=== PATIENT | female | born 1940 | race Caucasian/White ===

== ENCOUNTER → 2017-09-04 08:11 | Outpatient (CLI) | payer MEDICARE, OTHER, SELFPAY ==
[2017-09-04 08:21] VITALS: BP 141/82; PULSE 64; RESP 18; TEMP 36.6; O2SAT 93; BMI 28.8
[2017-09-04] MEDS: Cosyntropin 0.25 MG Vial IM (08:28)
== END ==
PROVIDERS: Family Provider Internal Medicine; PCP Internal Medicine; Visit Provider Internal Medicine
DX: E27.40 Unspecified adrenocortical insufficiency (principal)
CPT/HCPCS: 36415; 82533; 96372; J0834

== ENCOUNTER → 2017-09-12 06:52 | Outpatient (CLI) | payer MEDICARE, OTHER, SELFPAY ==
--- NOTE | 2017-09-12 10:18 | STRESSREP ---
Stress Test Report Pharmacologic myocardial perfusion stress test. 76-year-old lady with a history of hypotension. Stress protocol: Resting EKG demonstrates normal sinus rhythm with rate of 67 bpm resting blood pressure of 144/88 mmHg. 0.4 mg of regadenoson was infused per usual protocol followed by rapid intravenous saline flush injection continuous EKG monitoring was performed the maximum heart rate attained was 80 bpm which was 55% of maximum predicted heart rate the maximum workload attained was 1 metabolic equivalent. At rest there were no ST or T-wave changes noted suggest ischemia at peak infusion no ST or T-wave changes were noted suggest ischemia or abnormal flow reserve. The resting blood pressure is 144/88 with a final blood pressure 154/80 mmHg. Myocardial perfusion protocol.: 12.0 mCi of technetium 99m sestamibi was injected at rest. 0.4 mg of regadenoson was infused per usual protocol. At peak infusion 35.9 mCi of technetium 99m sestamibi was injected stress images were obtained stress and rest images were reconstructed and compared in the short axis vertical long and horizontal long axis. Gated images were also obtained Perfusion SPECT analysis: Review of the images demonstrate normal uptake of tracer noted in all areas of the myocardium. The resting images similarly demonstrate normal uptake of tracer noted in all areas of myocardium. No areas of reversibility are noted suggest ischemia no previous infarct is noted. Gated SPECT analysis: The gated ejection fraction is 72%. Conclusion: Normal pharmacologic myocardial perfusion stress test. Preserved ejection fraction.
== END ==
PROVIDERS: Family Provider Internal Medicine; PCP Internal Medicine; Visit Provider Nurse Practitioner Gerontology
DX: R06.02 Shortness of breath (principal); I95.9 Hypotension, unspecified
CPT/HCPCS: 78452; 93017; A9500; A4216; J2785

== ENCOUNTER → 2018-07-03 10:50 | Outpatient (CLI) | payer MEDICARE, SELFPAY ==
[2017-09-04 08:21] VITALS: BMI 28.8
[2018-07-03 11:54] LABS: Absolute Lymphocyte Count 1.64 X10^3/ul (0.83-4.51); Absolute Neutrophil Count 9.6 X10^3/uL (2.0-7.7); Basophil# 0.05 X10^3/uL; Basophil% 0.4 % (0-1); Eosinophil# 0.81 X10^3/uL; Eosinophils% 6.3 % (0-5); Hematocrit 40.9 % (37-47); Hemoglobin 12.9 g/dl (12.0-15.0); Lymphocyte # 1.64 X10^3/ul (4.0); Lymphocyte % 12.7 % (19-41); Mean Corp Hgb Conc 31.5 g/gl (32-36); Mean Corpuscular Hgb 30.1 pg (27.0-32.0); Mean Corpuscular Volume 95.3 fL (81-99); Mean Platelet Vol. 9.6 fl (6.2-12.0); Monocyte# 0.77 X10^3/uL; Neutrophil # 9.59 X10^3/uL (2.7-7.7); Neutrophil % 74.4 % (47-70); Platelet Count 322 K/mm3 (150-450); RBC Distribution Width CV 12.4 % (11.6-14.6); RBC Distribution Width SD 42.3 fl (35.1-43.9); Red Blood Count 4.29 M/mm3 (4.2-5.4); White Blood Count 12.9 K/mm3 (4.4-11.0)
[2018-07-03 11:59] LABS: POSITIVE COUNT NO; POSITIVE DIFFERENTIAL NO; POSITIVE MORPHOLOGY NO
[2018-07-03 12:25] LABS: Vitamin D,25 Hydroxy 65.6 ng/mL (29.95-100.01)
[2018-07-03 12:27] LABS: ALB/GLOB Ratio 0.9 RATIO (0.9-2.4); AST(SGOT) 19 U/L (15-37); Alanine Aminotransfer ALT/SGPT 19 U/L (13-56); Albumin, Serum 3.5 g/dL (3.2-5.0); Alkaline Phosphatase 154 U/L (45-117); Anion Gap 5 (5-15); BUN 10 mg/dL (7-18); BUN/Creat Ratio 13.1 RATIO (10-20); Calcium,Total 8.8 mg/dL (8.5-10.1); Chloride 96 mmol/L (98-107); Cholesterol 146 mg/dL (200); Creatinine, Serum 0.76 mg/dL (0.55-1.02); EST Glomerular Filtration Rate 78 mL/min (>60); Est Glom Filt Rate - Afr Amer 94 mL/min (>60); Globulin 4.1 g/dL (2.2-4.2); Glucose 107 mg/dL (74-106); High Density Lipoprotein 41 mg/dL; Potassium 4.4 mmol/L (3.5-5.1); Protein, Total 7.6 g/dL (6.4-8.2); Sodium Level 133 mmol/L (136-145); T4 Free Direct 1.13 ng/dL (0.76-1.46); Thyroid Stim Hormone (TSH) 0.74 uIU/mL (0.358-3.74); Triglycerides 104 mg/dL; Very Low Density Lipoprotein 21 mg/dL (5-40)
== END ==
PROVIDERS: Family Provider Internal Medicine; PCP Internal Medicine; Referring Provider Internal Medicine; Visit Provider Internal Medicine
DX: E55.9 Vitamin D deficiency, unspecified (principal); E03.9 Hypothyroidism, unspecified; I21.9 Acute myocardial infarction, unspecified
CPT/HCPCS: 36415; 80053; 80061; 82306; 84439; 84443; 84481; 85025

== ENCOUNTER 2018-10-02 13:13 | Emergency (ER) | payer OTHER, MEDICARE, SELFPAY ==
[2018-10-02 13:14] VITALS: BP 133/78; PULSE 64; RESP 18; TEMP 37.1; O2SAT 93; BMI 30.8
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
[2018-10-02] MEDS: HYDROcodone Bitartrate/Apap 5/325 Tablet PO (13:56)
[2018-10-02 14:15] LABS: Absolute Lymphocyte Count 2.14 X10^3/ul (0.83-4.51); Absolute Neutrophil Count 4.4 X10^3/uL (2.0-7.7); Basophil# 0.02 X10^3/uL; Basophil% 0.3 % (0-1); Eosinophil# 0.18 X10^3/uL; Eosinophils% 2.5 % (0-5); Hematocrit 38.5 % (37-47); Hemoglobin 12.9 g/dl (12.0-15.0); Lymphocyte # 2.14 X10^3/ul (4.0); Lymphocyte % 30.3 % (19-41); Mean Corp Hgb Conc 33.5 g/gl (32-36); Mean Corpuscular Hgb 30.2 pg (27.0-32.0); Mean Corpuscular Volume 90.2 fL (81-99); Mean Platelet Vol. 9.5 fl (6.2-12.0); Monocyte# 0.34 X10^3/uL; Monocyte% 4.8 % (0-10); Neutrophil # 4.37 X10^3/uL (2.7-7.7); Platelet Count 289 K/mm3 (150-450); RBC Distribution Width CV 12.8 % (11.6-14.6); RBC Distribution Width SD 41.7 fl (35.1-43.9); Red Blood Count 4.27 M/mm3 (4.2-5.4); White Blood Count 7.1 K/mm3 (4.4-11.0)
[2018-10-02 14:18] LABS: International Normalized Ratio 1.1; POSITIVE COUNT NO; POSITIVE DIFFERENTIAL NO; POSITIVE MORPHOLOGY NO; Partial Thromboplast Time 44.5 Seconds (24.1-36.2); Prothrombin Time (Protime)PT. 14.1 SECONDS (11.7-14.9)
[2018-10-02 14:21] LABS: Anion Gap 3 (5-15); BUN 9 mg/dL (7-18); BUN/Creat Ratio 12.9 RATIO (10-20); Calcium,Total 9.1 mg/dL (8.5-10.1); Chloride 97 mmol/L (98-107); EST Glomerular Filtration Rate 87 mL/min (>60); Est Glom Filt Rate - Afr Amer 105 mL/min (>60); Estimated Creatinine Clearance 38.35 ml/min; Glucose 119 mg/dL (74-106); Potassium 3.5 mmol/L (3.5-5.1); Sodium Level 131 mmol/L (136-145)
[2018-10-02 15:20] VITALS: BP 127/48; PULSE 62; RESP 15; O2SAT 97
[2018-10-02 16:52] VITALS: BP 150/71; PULSE 61; RESP 18; O2SAT 96
== END 2018-10-02 16:56 | disposition home or self-care (01) ==
LOC: ED 14:23
PROVIDERS: Emergency Provider Emergency Medicine; Family Provider Internal Medicine; PCP Internal Medicine
DX: S16.1XXA Strain of muscle, fascia and tendon at neck level, initial encounter (principal); S20.219A Contusion of unspecified front wall of thorax, initial encounter; R40.2410 Glasgow coma scale score 13-15, unspecified time; V89.2XXA Person injured in unspecified motor-vehicle accident, traffic, initial encounter; Y93.9 Activity, unspecified; Y92.9 Unspecified place or not applicable; M54.9 Dorsalgia, unspecified; M54.2 Cervicalgia; G89.29 Other chronic pain; F41.9 Anxiety disorder, unspecified; Z79.899 Other long term (current) drug therapy
CPT/HCPCS: 70450; 71250; 72125; 80048; 85025; 85610; 85730; 93005; 99285; A4216

== ENCOUNTER 2018-11-26 14:00 | Outpatient (RCR) | payer OTHER, MEDICARE, SELFPAY ==
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
--- NOTE | 2018-11-26 14:23 | HP.PTDCSUM_ITS ---
HP - PT D/C Summary It has been my pleasure to treat KURTIS HOROWITZ under orders from Mary Maria DO, for the diagnosis of SOFT TISSUE INJURY for a total of 10 visit(s). Discharge Date: 11/26/18 Please see the following information for a summary of their discharge status. - Subjective Subjective: Doing well ..min pain Able to do ADL'S. - Pain Bilateral Back Pain Intensity (Out of 10): 4 Neck Pain Intensity (Out of 10): 2 Chest Pain Intensity (Out of 10): 3 - Overall Improvement % Improvement: 85 - Objective Objective/Function: POSTURE: mild foward posture. GAIT: reciprocal pattern. NEURO: denies parathesia/tingling,reflexes intact. CERVICAL ROM: flexion min loss,lateral flexion/rotation mod loss ,extenison mod loss. BUE: grossly 4/5 4- /5 shoulder. MMT: quads/hams 4/5,hip 4/5 ankle 4/5. LUMBAR ROM : flexion mod loss ,extension mod/extension mod loss - Goals Goal 1:: Independant with Aquatic PT Goal Progress: Goal Met Goal 2:: Patient to decrease pain by 50% or greater to improve function and AD L's Goal Progress: Goal Met Goal 3:: Patient to increase strength 4/5 to improve function Goal 4:: Patient to improve spine for function of recovery Goal Progress: Goal Met Goal 5:: Patient be able to return to ADLS' and housework tasks with minm limiations Goal Progress: Goal Met Goal 6:: Patient to improve back owestry score by 5 points or greater to improve QOL. Goal Progress: Goal Met - Plan Plan: D/C - D/C Information Discharge Comments: met goals If there are questions or concerns regarding this patient's physical therapy, please feel free to call me at [phone]. Thank you for the referral of this patient. Sincerely, Dav Brooks, PT, Cert MDT, OCS
== END 2018-11-26 19:00 | disposition home or self-care (01) ==
LOC: PT 14:00
PROVIDERS: Family Provider Internal Medicine; PCP Internal Medicine; Visit Provider Internal Medicine
DX: T14.90XD Injury, unspecified, subsequent encounter (principal)
CPT/HCPCS: 97113; 97162; 97530

== ENCOUNTER → 2019-01-13 11:34 | Outpatient (CLI) | payer MEDICARE, OTHER, SELFPAY ==
[2019-01-13 11:52] LABS: Bacteria 0 SEEN /hpf (None Seen); Mucous, Urine 0 SEEN /hpf (<or=2+); White Blood Cells 0 SEEN /hpf (0-5)
[2019-01-13 12:38] LABS: Color, Urine Yellow (Yellow); Glucose, Dipstick Normal (Normal); Ketone-Dipstick Negative (Negative); Leukocyte Esterase-Dipstick 25 /ul (Negative); Nitrite-Dipstick Negative (Negative); Occult Blood-Urine 10 /ul (Negative); Protein-Dipstick 15 mg/dl (Negative); Urine Bilirubin Dipstick Negative (Negative); Urine Clarity Sl. Cloudy (Clear); Urine Urobilinogen 1 mg/dl (Normal)
[2019-01-13 12:39] LABS: Absolute Lymphocyte Count 1.85 X10^3/uL (0.83-4.51); Absolute Neutrophil Count 3.7 X10^3/uL (2.0-7.7); Basophil# 0.06 X10^3/uL; Basophil% 0.9 % (0-1); Eosinophil# 0.22 X10^3/uL; Eosinophils% 3.5 % (0-5); Hematocrit 42.2 % (37-47); Lymphocyte # 1.85 X10^3/ul (4.0); Lymphocyte % 29.2 % (19-41); Mean Corp Hgb Conc 33.2 g/dL (32-36); Mean Corpuscular Hgb 29.9 pg (27.0-32.0); Mean Platelet Vol. 9.5 fl (6.2-12.0); Monocyte# 0.49 X10^3/uL; Monocyte% 7.7 % (0-10); NRBC Flagged by Analyzer 0 % (0-5); Neutrophil # 3.69 X10^3/uL (2.7-7.7); Neutrophil % 58.4 % (47-70); Platelet Count 320 K/mm3 (150-450); RBC Distribution Width CV 12.4 % (11.6-14.6); RBC Distribution Width SD 40.5 fl (35.1-43.9); Red Blood Count 4.69 M/mm3 (4.2-5.4); White Blood Count 6.3 K/mm3 (4.4-11.0)
[2019-01-13 13:03] LABS: Red Blood Cells-Urine 0-5 SEEN /hpf (0-5); Squamous Epithelial Cells - UA 0-5 SEEN /hpf (5-10)
[2019-01-13 13:11] LABS: Vitamin D,25 Hydroxy 78.8 ng/mL (29.95-100.01)
[2019-01-13 13:17] LABS: Microalbumin,Random Urine 31.6 mg/L (NO RANGE EST.); Microalbumin:Creatinine Ratio 27.5 mg/g CRE (<30 mg/g CRE)
[2019-01-13 13:26] LABS: ALB/GLOB Ratio 0.9 RATIO (0.9-2.4); AST(SGOT) 19 U/L (15-37); Alanine Aminotransfer ALT/SGPT 17 U/L (13-56); Albumin, Serum 3.8 g/dL (3.2-5.0); Alkaline Phosphatase 127 U/L (45-117); Anion Gap 8 (5-15); BUN 7 mg/dL (7-18); BUN/Creat Ratio 9.6 RATIO (10-20); Calcium,Total 9.4 mg/dL (8.5-10.1); Chloride 87 mmol/L (98-107); Creatinine, Serum 0.73 mg/dL (0.55-1.02); EST Glomerular Filtration Rate 81 mL/min (>60); Est Glom Filt Rate - Afr Amer 99 mL/min (>60); Free T3 2.1 pg/mL (2.18-3.98); Globulin 4.4 g/dL (2.2-4.2); Glucose 122 mg/dL (74-106); Potassium 3.2 mmol/L (3.5-5.1); Protein, Total 8.2 g/dL (6.4-8.2); Sodium Level 126 mmol/L (136-145); T4 Free Direct 1.27 ng/dL (0.76-1.46); Thyroid Stim Hormone (TSH) 0.44 uIU/mL (0.358-3.74)
[2019-01-14 20:07] LABS: CHOLESTEROL TOTAL 180 mg/dL (100-199); HDL-C 46 mg/dL (>39); HDL-P TOTAL 34.7 umol/L (>=30.5); SMALL LDL-P 945 nmol/L (<=527); TRIGLYCERIDES 121 mg/dL (0-149)
[2019-01-15 16:30] LABS: INSULIN RESISTANCE SCORE 63 (<=45); LDL SIZE 20.5 nm (>20.5); LDL-C 110 mg/dL (0-99); LDL-P 1579 nmol/L (<1000)
== END ==
PROVIDERS: Family Provider Internal Medicine; PCP Internal Medicine; Referring Provider Internal Medicine; Visit Provider Internal Medicine
DX: E55.9 Vitamin D deficiency, unspecified (principal); E03.9 Hypothyroidism, unspecified; E78.00 Pure hypercholesterolemia, unspecified; I12.9 Hypertensive chronic kidney disease with stage 1 through stage 4 chronic kidney disease, or unspecified chronic kidney disease; N18.9 Chronic kidney disease, unspecified
CPT/HCPCS: 36415; 80053; 80061; 81001; 82043; 82306; 82570; 83704; 84439; 84443; 84481; 85025

== ENCOUNTER → 2020-06-29 12:59 | Outpatient (CLI) | payer MEDICARE, OTHER, SELFPAY ==
--- NOTE | 2020-06-29 13:20 | BD_ITS ---
STUDY: DUAL ENERGY X-RAY ABSORPTIOMETRY / DXA REASON FOR EXAM: Female, 79 years old. [id number]. Loss of height. Postmenopausal TECHNIQUE: Bone Mineral Density (BMD) measurements of lumbar spine and bilateral hips were obtained. COMPARISON: None. FINDINGS: Lumbar Spine (L1-L4): g/cm2 (0.997) / T-score (-1.4) / Z-score (0.4) Findings are suggestive of osteopenia with a low fracture risk. Left Femur Total: g/cm2 (0.967) / T-score (-0.3) / Z-score (1.7) Left Femoral Neck: g/cm2 (0.841) / T-score (-1.4) / Z-score (0.8) Right Femur Total: g/cm2 (1.047) / T-score (0.3) / Z-score (2.3) Right Femoral Neck: g/cm2 (0.821) / T-score (-1.6) / Z-score (0.6) BD/Dexa Bone Density Study IMPRESSION: The patient is considered osteopenic as outlined below according to World [employer] Organization (WHO) criteria with a moderate fracture risk. Reference Information: The T-score is the number of standard deviations above or below the standard which is normal for young adults at their peak bone mineral density. The World Health Organization (WHO) interprets the T-scores as follows: Above -1 Normal bone density Between -1 and -2.5 Osteopenia Equal to / or below -2.5 Osteoporosis As a practical clinical guideline, osteopenia may be graded as follows: Mild -1 through -1.5 Moderate -1.6 through -2.0 Severe -2.1 through -2.4 The Z-score is the number of standard deviations above or below age-matched controls. A Z-score of less than -1.5 would be considered abnormal. References: 1. NIH Osteoporosis and Related Bone Diseases www osteo.org 2. International Society for Clinical Densitometry www iscd.org 3. National Osteoporosis Foundation www nof.org Electronically Signed: Nelson Jenkins MD at 15:13 EST , Service support ,
== END ==
PROVIDERS: PCP Internal Medicine; Referring Provider Internal Medicine; Visit Provider Internal Medicine
DX: Z78.0 Asymptomatic menopausal state (principal)
CPT/HCPCS: 77080

== ENCOUNTER → 2021-01-16 08:07 | Outpatient (CLI) | payer MEDICARE, OTHER, SELFPAY ==
[2021-01-16 09:55] LABS: Absolute Lymphocyte Count 3.07 X10^3/uL (0.83-4.51); Absolute Neutrophil Count 2.8 X10^3/uL (2.0-7.7); Basophil# 0.07 X10^3/uL; Eosinophil# 0.26 X10^3/uL; Eosinophils% 3.9 % (0-5); Hemoglobin 13.3 g/dL (12.0-15.0); Lymphocyte # 3.07 X10^3/ul (0.83-4.51); Lymphocyte % 45.5 % (19-41); Mean Corp Hgb Conc 31.7 g/dL (32-36); Mean Corpuscular Hgb 30.4 pg (27.0-32.0); Mean Corpuscular Volume 96.1 fL (81-99); Monocyte% 7.4 % (0-10); NRBC Flagged by Analyzer 0 % (0-5); Neutrophil # 2.82 X10^3/uL (2.7-7.7); Neutrophil % 41.9 % (47-70); Platelet Count 278 K/mm3 (150-450); RBC Distribution Width CV 12.6 % (11.6-14.6); RBC Distribution Width SD 44.7 fl (35.1-43.9); Red Blood Count 4.37 M/mm3 (4.2-5.4); White Blood Count 6.7 K/mm3 (4.4-11.0)
[2021-01-16 10:12] LABS: Vitamin D,25 Hydroxy 104.5 ng/mL
[2021-01-16 10:23] LABS: ALB/GLOB Ratio 0.8 RATIO (0.9-2.4); AST(SGOT) 26 U/L (15-37); Alanine Aminotransfer ALT/SGPT 23 U/L (13-56); Albumin, Serum 3.4 g/dL (3.2-5.0); Alkaline Phosphatase 137 U/L (45-117); Anion Gap 4 (5-15); BUN 13 mg/dL (7-18); BUN/Creat Ratio 17.8 RATIO (10-20); Chloride 95 mmol/L (98-107); Cholesterol 161 mg/dL (200); Creatinine, Serum 0.73 mg/dL (0.55-1.02); EST Glomerular Filtration Rate 81 mL/min (>60); Est Glom Filt Rate - Afr Amer 98 mL/min (>60); Globulin 4.4 g/dL (2.2-4.2); Glucose 120 mg/dL (74-106); High Density Lipoprotein 51 mg/dL; Potassium 3.9 mmol/L (3.5-5.1); Protein, Total 7.8 g/dL (6.4-8.2); Sodium Level 132 mmol/L (136-145); Thyroid Stim Hormone (TSH) 2.03 uIU/mL (0.358-3.74); Triglycerides 110 mg/dL; Uric Acid 4.9 mg/dL (2.6-6.0); Very Low Density Lipoprotein 22 mg/dL (5-40)
== END ==
PROVIDERS: PCP Internal Medicine; Referring Provider Internal Medicine; Visit Provider Internal Medicine
DX: E03.9 Hypothyroidism, unspecified (principal); E78.00 Pure hypercholesterolemia, unspecified; M10.9 Gout, unspecified; E55.9 Vitamin D deficiency, unspecified
CPT/HCPCS: 36415; 80053; 80061; 82306; 84443; 84550; 85025

== ENCOUNTER 2021-07-18 10:11 | Outpatient (CLI) | payer MEDICARE, OTHER, SELFPAY ==
[2021-07-18 12:21] LABS: Absolute Lymphocyte Count 1.83 X10^3/uL (0.83-4.51); Absolute Neutrophil Count 2.6 X10^3/uL (2.0-7.7); Basophil# 0.07 X10^3/uL; Basophil% 1.4 % (0-1); Eosinophil# 0.28 X10^3/uL; Eosinophils% 5.5 % (0-5); Hematocrit 41.4 % (37-47); Hemoglobin 13.8 g/dL (12.0-15.0); Lymphocyte # 1.83 X10^3/ul (0.83-4.51); Lymphocyte % 35.7 % (19-41); Mean Corp Hgb Conc 33.3 g/dL (32-36); Mean Corpuscular Hgb 30.7 pg (27.0-32.0); Mean Corpuscular Volume 92.2 fL (81-99); Mean Platelet Vol. 10.2 fl (6.2-12.0); Monocyte# 0.37 X10^3/uL; Monocyte% 7.2 % (0-10); NRBC Flagged by Analyzer 0 % (0-5); Neutrophil # 2.57 X10^3/uL (2.7-7.7); Platelet Count 251 K/mm3 (150-450); RBC Distribution Width CV 12.2 % (11.6-14.6); RBC Distribution Width SD 41.4 fl (35.1-43.9); Red Blood Count 4.49 M/mm3 (4.2-5.4); White Blood Count 5.1 K/mm3 (4.4-11.0)
[2021-07-18 12:33] LABS: ALB/GLOB Ratio 0.9 RATIO (0.9-2.4); AST(SGOT) 23 U/L (15-37); Alanine Aminotransfer ALT/SGPT 26 U/L (13-56); Albumin, Serum 3.6 g/dL (3.2-5.0); Alkaline Phosphatase 130 U/L (45-117); Anion Gap 3 (5-15); BUN 11 mg/dL (7-18); BUN/Creat Ratio 15.3 RATIO (10-20); Calcium,Total 9.3 mg/dL (8.5-10.1); Chloride 95 mmol/L (98-107); Cholesterol 161 mg/dL (200); Creatinine, Serum 0.72 mg/dL (0.55-1.02); EST Glomerular Filtration Rate 83 mL/min (>60); Est Glom Filt Rate - Afr Amer 100 mL/min (>60); Glucose 130 mg/dL (74-106); High Density Lipoprotein 53 mg/dL; Potassium 3.7 mmol/L (3.5-5.1); Protein, Total 7.6 g/dL (6.4-8.2); Sodium Level 134 mmol/L (136-145); Triglycerides 107 mg/dL; Very Low Density Lipoprotein 21 mg/dL (5-40); Vitamin D,25 Hydroxy 35.4 ng/mL
[2021-07-18 12:47] LABS: Microalbumin,Random Urine 15.7 mg/L (NO RANGE EST.); Microalbumin:Creatinine Ratio 30.9 mg/g CRE (<30 mg/g CRE)
[2021-07-18 12:53] LABS: Hemoglobin A1c 6.3 % (3.8-5.6)
== END 2021-07-18 23:59 | disposition home or self-care (01) ==
LOC: MTLAB 10:12
PROVIDERS: PCP Internal Medicine; Referring Provider Internal Medicine; Visit Provider Internal Medicine
DX: E11.22 Type 2 diabetes mellitus with diabetic chronic kidney disease (principal); E78.00 Pure hypercholesterolemia, unspecified; E55.9 Vitamin D deficiency, unspecified; I12.9 Hypertensive chronic kidney disease with stage 1 through stage 4 chronic kidney disease, or unspecified chronic kidney disease; N18.9 Chronic kidney disease, unspecified
CPT/HCPCS: 36415; 80053; 80061; 82043; 82306; 82570; 83036; 85025

== ENCOUNTER → 2022-01-11 | Outpatient (CLI) | payer MEDICARE, OTHER, SELFPAY ==
--- NOTE | 2022-01-11 08:31 | RAD_ITS ---
STUDY: X-RAY - ESOPHAGUS (BARIUM SWALLOW) WITH FLUOROSCOPY REASON FOR EXAM: Female, 81 years old. DYSPHAGIA TECHNIQUE: 17 view(s) of the esophagus were obtained following swallowing of barium. FLUOROSCOPY TIME (if supplied): (37 seconds) minutes/seconds COMPARISON: None. FINDINGS: There is no demonstrated esophageal foreign body. There is circumferential narrowing of the distal esophagus at the gastroesophageal junction. The patient ingested a 12 mm tablet of barium. The tablet is trapped at the gastroesophageal junction. Normal gastroesophageal junction, without a demonstrated hiatal hernia. There is atherosclerotic calcification of the aortic arch with tortuosity of the descending aorta. Normal visualized pulmonary parenchyma. There are diffuse degenerative changes of the visualized thoracic spine. RAD/Esophagus Dual Contrast IMPRESSION: Circumferential narrowing of the distal portion of the esophagus at the level of the gastroesophageal junction. The ingested 12 mm tablet of barium is trapped at the gastroesophageal junction. Electronically Signed: Nelson Jenkins MD at 10:26 EDT ,
== END | disposition home or self-care (01) ==
LOC: RAD 08:17
PROVIDERS: PCP Internal Medicine; Referring Provider Otolaryngology; Visit Provider Otolaryngology
DX: R13.10 Dysphagia, unspecified (principal); K21.9 Gastro-esophageal reflux disease without esophagitis
CPT/HCPCS: 74220; 74221

== ENCOUNTER 2022-09-21 19:23 | Emergency (ER) | payer MEDICARE, OTHER, SELFPAY ==
[2022-09-21 19:24] VITALS: BP 139/70; PULSE 75; RESP 16; TEMP 36.8; O2SAT 93
[2022-09-21 19:29] VITALS: O2SAT 94
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
--- NOTE | 2022-09-21 19:44 | ED.VIS.FALL ---
HPI HPI - Fall History of Present Illness Chief Complaint: Fall Informant: patient Occured/Mechanism Occurred: Today Mechanism/Context: Yes same level fall and Yes trip Usually ambulates: Without assistance Pain/Injury Location: Occipital scalp Pain Location: head Quality of Pain: Dull Current Severity: Mild Worsened by: Nothing Relieved by: Nothing Associated Symptoms Associated Symptoms: Positive for Loss of consciousness; Negative for Parasthesias, Weakness, Loss of function or Inability to ambulate Length of loss of consciousness: Approximately 30 seconds Narrative Narrative: Patient presents with scalp laceration and head injury that began today. Patient was helping her daughter carry a large box when her foot got caught in the pavement and she fell backwards. Patient hit her head on the truck tire. Daughter stated that the patient was dazed and had a brief loss of consciousness for approximately 30 seconds. Patient still has difficulty remembering events of the fall. Patient denies any paresthesias or weakness. Patient denies any nausea or vomiting. Patient has a history of chronic neck and back pain but states she has no worsening of her neck and back pain. Patient is unsure of her last tetanus. Tetanus Immunization: Unknown [facility] Medical History (Updated 09/21/22 @ 20:[address] Delvis Elliott, DO) Arthritis Chronic neck and back pain Hypertension Hypoglycemia Thyroid disease Home Medications alprazolam 1 mg tablet (Xanax) 0.5 mg PO BID PRN PRN Anxiety 08/02/16 [History Last Taken 10/02/18] amitriptyline 50 mg tablet 50 mg PO QHS 08/02/16 [History Last Taken Unknown] atorvastatin 80 mg tablet (Lipitor) 80 mg PO DAILY 08/02/16 [History Last Taken 10/02/18] duloxetine 60 mg capsule,delayed release 90 mg PO DAILY 08/02/16 [History Last Taken 10/02/18] levothyroxine 88 mcg tablet (Levo-T) 88 mcg PO MOTUWETHFRSA 08/02/16 [History Last Taken 10/02/18] metoprolol tartrate 50 mg-hydrochlorothiazide 25 mg tablet (Lopressor HCT) 0.5 tab PO DAILY 08/02/16 [History Last Taken 10/02/18] montelukast 10 mg tablet 10 mg PO DAILY 08/02/16 [History Last Taken 10/02/18] bupropion HCl 150 mg tablet,12 hr sustained-release (Wellbutrin SR) 150 mg PO DAILY 08/08/16 [History Last Taken 10/02/18] gabapentin 300 mg tablet,extended release 24 hr (Gralise) 300 mg PO QHS 08/08/16 [History Last Taken 10/02/18] tizanidine 4 mg tablet (Zanaflex) 2 mg PO TID 08/08/16 [History Last Taken 10/02/18] Ibandronate Sodium [Boniva] 150 mg PO Q30D 01/22/17 [History Last Taken Unknown] amlodipine 2.5 mg tablet 2.5 mg PO QHS 01/22/17 [History Last Taken Unknown] buspirone 15 mg tablet 15 mg PO QHS 01/22/17 [History Last Taken 10/01/18] citalopram 40 mg tablet 40 mg PO DAILY 01/22/17 [History Last Taken 10/02/18] ergocalciferol (vitamin D2) 1,250 mcg (50,000 unit) capsule (Vitamin D2) 50,000 unit PO Q7D 01/22/17 [History Last Taken Unknown] levothyroxine 75 mcg tablet 44 mcg PO SILVA 01/22/17 [History Last Taken 09/27/18] lisinopril 20 mg tablet 20 mg PO BID 01/22/17 [History Last Taken 10/02/18] methocarbamol 500 mg tablet 500 mg PO TID 01/22/17 [History Last Taken 10/02/18] potassium chloride 20 mEq tablet,extended release(part/cryst) (Klor-Con M) 20 meq PO BID 01/22/17 [History Last Taken 10/02/18] hydrocodone-acetaminophen 5-325mg 5mg-325mg ([place]) 5 - 325 mg PO BID PRN PRN Pain 03/10/17 [History Last Taken 10/02/18] nitrofurantoin monohydrate/macrocrystals 100 mg capsule (Macrobid) 100 mg PO Q12H #20 caps 10/05/20 [Rx Last Taken Unknown] Allergy/AdvReac Type Severity Reaction Status Date / Time Penicillins [PCN] Allergy Severe Anaphylaxis Verified 10/05/20 15:20 Sulfa (Sulfonamide Allergy Rash Verified 10/05/20 15:20 Antibiotics) sulfamethoxazole Allergy Rash Verified 10/05/20 15:20 [From Bactrim] trimethoprim [From Bactrim] Allergy Rash Verified 10/05/20 15:20 clarithromycin AdvReac Severe HALLUCINATI Verified 10/05/20 15:20 ONS pneumococcal vaccine AdvReac Severe Unknown Verified 10/05/20 15:20 [From Pneumovax 23] ALL EYE DROPS Allergy Severe Itching Uncoded 10/05/20 15:20 blood thinners Allergy Unknown Uncoded 10/05/20 15:20 Surgical History (Updated 09/21/22 @ 19:[address] Delvis Elliott DO) Hx of angioplasty Hx of hysterectomy S/P ORIF (open reduction internal fixation) fracture Social History Smoking Status: Former smoker ROS ROS ED Constitutional Constitutional ED: Denies chills or fever(s) Eyes Eyes: Denies blurry vision or change in vision ENT ENT ED: Denies rhinorrhea or sore throat Cardiovascular Cardiovascular: Denies chest pain or palpitations Respiratory/Chest Respiratory/Chest: Denies cough or dyspnea Gastrointestinal Gastrointestinal: Denies nausea or vomiting Genitourinary Genitourinary ED: Denies dysuria or hematuria Musculoskeletal Musculoskeletal: Reports back pain and neck pain Integumentary Denies abscess or rash Neurologic Neurologic: Reports headache(s); Denies weakness Allergic/Immunologic Allergic/Immunologic ED: Denies mouth swelling or urticaria EXAM Physical Exam Const Vital Signs: 09/21/22 19:24 09/21/22 19:29 09/21/22 21:01 Temperature 98.2 F Temperature Source Oral Pulse Rate 75 71 Respiratory Rate 16 16 Respiratory Effort Normal Non-Labored Respiratory Depth Normal Respiratory Pattern Normal Blood Pressure 139/70 H 158/82 H Blood Pressure Mean 93 107 Pulse Ox 93 94 95 Oxygen Delivery Method Room Air Room Air Room Air Positive well nourished and well developed General Appearance ED: well developed and NAD HEENT HEENT Narrative: There is a 3 cm full-thickness linear laceration over the occipital scalp. There is mild bleeding. There are no foreign bodies noted. There is moderate gapping of the wound margins. There is no bony crepitance or step-off. Neck full ROM and supple Neuro oriented x3, CN's II-XII intact bilaterally, moves all extremities, no focal motor deficits and no sensory deficits noted Rafita Coma Scale: document GCS findings Spontaneous Obeys Commands Oriented 15 Sensorium / Orientation: alert Motor Exam: strength 5/5 throughout Psych mental status grossly normal and thought process normal Skin Trauma: laceration linear and involves subcutaneous tissue MDM MDM MDM Narrative Medical decision making narrative: Differential diagnosis includes concussion, closed head injury, intracranial bleeding, and scalp laceration. CT scan of the brain will be obtained to assess for intracranial bleeding. Radiography Diagnostic Testing: Clinical Impression(s) from Imaging Studies Brain CT 09/21/22 19:37 IMPRESSION: No acute intracranial hemorrhage or bony fracture. 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 Similar exam findings compared to prior study 2018. Electronically Signed: Bishop العراقي MD at 20:12 EDT , Hip/Pelvis X-Ray 09/21/22 20:35 IMPRESSION: No displaced hip fracture is appreciated. Tiny corticated density projecting inferior to the femoral head of unclear significance and chronicity. Consider additional imaging as clinically warranted. Electronically Signed: Bishop العراقي MD at 21:02 EDT , CT scan of the brain was obtained. There is no acute intracranial abnormality. There are chronic changes noted. This was interpreted by the radiologist and was also independently reviewed by myself. X-rays of the left hip were obtained. There are 3 views. On my independent interpretation, there is no acute fracture or dislocation. There is no pelvic fracture noted. Radiologist also interpreted the x-rays and agrees. Treatment and Re-Evaluation Narrative: Patient was given a tetanus booster. The wound was cleaned and irrigated with copious amounts of normal saline. The wound was anesthetized with 1% lidocaine with epinephrine locally. The wound was closed with 8 leyda under sterile technique. Patient tolerated the procedure well. Bacitracin dressing was applied. On reevaluation, the patient began complaining of pain in the posterior aspect of her left hip. Because of this, left hip x-rays will be obtained. X-rays of the left hip did not show any acute fracture. Patient was advised of her findings. Patient began complaining of dizziness after x-rays. Patient was able to ambulate to the bathroom and back with her walker. Patient will be discharged home with a walker. Patient was instructed to follow-up with her primary care physician in 5 to 7 days. Patient was given head injury instructions. Patient was instructed to take Tylenol or ibuprofen as needed for pain. Patient and daughter understood and were agreeable with the plan. All questions were answered. Discharge Plan Triage Chief Complaint: Fall ED Provider: Delvis Elliott Dx/Rx/DC Orders Clinical Impression: Laceration of occipital scalp, Concussion, Contusion of left hip region Instructions: ED Concussion, ED Laceration Scalp Stitches or Leyda Prescriptions: No Action nitrofurantoin monohyd/m-cryst [Macrobid] 100 mg capsule 100 mg PO Q12H Qty: 20 0RF Rx Instructions: must administer with a meal/food atorvastatin [Lipitor] 80 MG tablet 80 mg PO DAILY alprazolam [Xanax] 1 MG tablet 0.5 mg PO BID PRN PRN (Reason: Anxiety) metoprolol ta-hydrochlorothiaz [Lopressor HCT] 1 EACH tablet 0.5 tab PO DAILY amitriptyline 50 MG tablet 50 mg PO QHS levothyroxine [Levo-T] 88 MCG tablet 88 mcg PO MOTUWETHFRSA montelukast 10 MG tablet 10 mg PO DAILY duloxetine 60 MG capsule 90 mg PO DAILY bupropion HCl [Wellbutrin SR] 150 MG tablet sustained-release 12 hr 150 mg PO DAILY tizanidine [Zanaflex] 4 MG tablet 2 mg PO TID gabapentin [Gralise] 300 MG tablet extended release 24 hr 300 mg PO QHS methocarbamol 500 MG tablet 500 mg PO TID citalopram 40 MG tablet 40 mg PO DAILY lisinopril 20 MG tablet 20 mg PO BID amlodipine 2.5 MG tablet 2.5 mg PO QHS levothyroxine 75 MCG tablet 44 mcg PO SILVA potassium chloride [Klor-Con M20] 20 MEQ tablet,ER particles/crystals 20 meq PO BID ergocalciferol (vitamin D2) [Vitamin D2] 50,000 UNIT capsule 50,000 unit PO Q7D Label Comments: every other week buspirone 15 MG tablet 15 mg PO QHS Ibandronate Sodium [Boniva] 150 MG tablet 150 mg PO Q30D hydrocodone-acetaminophen [[place]] 1 EACH tablet 5 - 325 mg PO BID PRN PRN (Reason: Pain) Primary Care Provider: Mary Maria Referrals: Mary Maria DO [Primary Care Provider] - 5 Days for suture removal Disposition Disposition: Home, Self Care
[2022-09-21] MEDS: Diphth,Pertuss(Acell),Tet Vac 0.5 ML Vial IM (20:01)
[2022-09-21] MEDS: Lidocaine/Epi/Tetracaine 50 ML 1 APPLIC TOPICAL (20:01)
[2022-09-21] MEDS: Lidocaine 1% /Epi 1:100 (20ml) 20 ML Vial INFILT (20:01)
--- NOTE | 2022-09-21 20:35 | RAD_ITS ---
INDICATION: Injury/Pain EXAMINATION/TECHNIQUE: X-RAY - LEFT XR Hip Unilateral with Pelvis when performed; 2-3 Views 3 VIEWS COMPARISON: None. FINDINGS: Moderate bilateral hip joint space narrowing is appreciated. The patient has a tiny density projecting just inferior to the femoral head along the ischium at the inferior aspect of the acetabulum. There is mild to moderate SI joint degenerative change. This patient has lower lumbar spine intervertebral disc narrowing and spondylotic change. Moderate degenerative changes are present at the pubic symphysis. No obvious pelvic ring fracture. Hernia repair with mesh material projecting over the pelvis. RAD/HIP, UNI W/ Pelvis 2-3 Views IMPRESSION: No displaced hip fracture is appreciated. Tiny corticated density projecting inferior to the femoral head of unclear significance and chronicity. Consider additional imaging as clinically warranted. Electronically Signed: Bishop العراقي MD at 21:02 EDT ,
[2022-09-21 21:01] VITALS: BP 158/82; PULSE 71; RESP 16; O2SAT 95
== END 2022-09-21 21:37 | disposition home or self-care (01) ==
LOC: ED 20:38
PROVIDERS: Emergency Provider Emergency Medicine; PCP Internal Medicine; Referring Provider Emergency Medicine; Visit Provider Emergency Medicine
DX: S01.01XA Laceration without foreign body of scalp, initial encounter (principal); S06.0X0A Concussion without loss of consciousness, initial encounter; S70.02XA Contusion of left hip, initial encounter; I10 Essential (primary) hypertension; Z87.891 Personal history of nicotine dependence; W01.198A Fall on same level from slipping, tripping and stumbling with subsequent striking against other object, initial encounter; Y93.89 Activity, other specified; E07.9 Disorder of thyroid, unspecified; Z79.899 Other long term (current) drug therapy; M19.90 Unspecified osteoarthritis, unspecified site; Z90.710 Acquired absence of both cervix and uterus; Z23 Encounter for immunization
CPT/HCPCS: 12002; 70450; 73502; 90471; 90715; 96372; 99285

== ENCOUNTER → 2022-10-31 | Outpatient (CLI) | payer MEDICARE, OTHER, SELFPAY ==
[2022-10-31 15:05] LABS: Absolute Lymphocyte Count 2.39 X10^3/uL (0.83-4.51); Absolute Neutrophil Count 4.7 X10^3/uL (2.0-7.7); Basophil# 0.08 X10^3/uL; Eosinophils% 3.7 % (0-5); Hematocrit 41.3 % (37-47); Hemoglobin 12.8 g/dL (12.0-15.0); Lymphocyte # 2.39 X10^3/ul (0.83-4.51); Lymphocyte % 29.4 % (19-41); Mean Corpuscular Volume 96.9 fL (81-99); Mean Platelet Vol. 10.4 fl (6.2-12.0); Monocyte# 0.59 X10^3/uL; Monocyte% 7.3 % (0-10); NRBC Flagged by Analyzer 0 % (0-5); Neutrophil # 4.73 X10^3/uL (2.7-7.7); Neutrophil % 58.2 % (47-70); Platelet Count 300 K/mm3 (150-450); RBC Distribution Width CV 12.7 % (11.6-14.6); RBC Distribution Width SD 45.2 fl (35.1-43.9); Red Blood Count 4.26 M/mm3 (4.2-5.4); White Blood Count 8.1 K/mm3 (4.4-11.0)
[2022-10-31 15:38] LABS: Vitamin D,25 Hydroxy 94.9 ng/mL
[2022-10-31 15:53] LABS: ALB/GLOB Ratio 0.8 RATIO (0.9-2.4); AST(SGOT) 22 U/L (15-37); Alanine Aminotransfer ALT/SGPT 18 U/L (13-56); Albumin, Serum 3.4 g/dL (3.2-5.0); Alkaline Phosphatase 137 U/L (45-117); Anion Gap 3 (5-15); BUN 13 mg/dL (7-18); Calcium,Total 9.3 mg/dL (8.5-10.1); Chloride 99 mmol/L (98-107); Cholesterol 132 mg/dL (200); Creatinine, Serum 0.76 mg/dL (0.55-1.02); EST Glomerular Filtration Rate 77 mL/min (>60); Est Glom Filt Rate - Afr Amer 93 mL/min (>60); Globulin 4.2 g/dL (2.2-4.2); Glucose 67 mg/dL (74-106); High Density Lipoprotein 52 mg/dL; Potassium 4.9 mmol/L (3.5-5.1); Protein, Total 7.6 g/dL (6.4-8.2); Sodium Level 132 mmol/L (136-145); Thyroid Stim Hormone (TSH) 2.77 uIU/mL (0.358-3.74); Triglycerides 101 mg/dL; Very Low Density Lipoprotein 20 mg/dL (5-40)
== END | disposition home or self-care (01) ==
LOC: MFPLAB 12:07
PROVIDERS: PCP Internal Medicine; Visit Provider Family Medicine
DX: E55.9 Vitamin D deficiency, unspecified (principal); E87.6 Hypokalemia; E03.9 Hypothyroidism, unspecified; I10 Essential (primary) hypertension
CPT/HCPCS: 36415; 80053; 80061; 82306; 84443; 85025

== ENCOUNTER → 2022-11-15 | Outpatient (CLI) | payer MEDICARE, OTHER, SELFPAY ==
[2022-11-15 11:14] LABS: Glucose 138 mg/dL (74-106)
[2022-11-15 11:18] LABS: Hemoglobin A1c 6.3 % (3.8-5.6)
[2022-11-15 11:19] LABS: Insulin 32.4 mU/L (2.6-37.6)
[2022-11-16 13:07] LABS: C-Peptide 5.3 ng/mL (1.1-4.4)
== END | disposition home or self-care (01) ==
LOC: MFPLAB 08:26
PROVIDERS: PCP Family Medicine; Visit Provider Family Medicine
DX: R73.09 Other abnormal glucose (principal)
CPT/HCPCS: 36415; 82947; 83036; 83525; 84681

== ENCOUNTER → 2023-08-21 | Outpatient (CLI) | payer MEDICARE, OTHER, SELFPAY ==
[2023-08-21 08:32] LABS: Absolute Lymphocyte Count 2.09 X10^3/uL (0.83-4.51); Absolute Neutrophil Count 5.7 X10^3/uL (2.0-7.7); Basophil# 0.06 X10^3/uL; Basophil% 0.7 % (0-1); Eosinophil# 0.31 X10^3/uL; Eosinophils% 3.5 % (0-5); Hematocrit 40.8 % (37-47); Hemoglobin 12.8 g/dL (12.0-15.0); Lymphocyte # 2.09 X10^3/ul (0.83-4.51); Lymphocyte % 23.6 % (19-41); Mean Corp Hgb Conc 31.4 g/dL (32-36); Mean Corpuscular Hgb 30.1 pg (27.0-32.0); Monocyte# 0.66 X10^3/uL; Monocyte% 7.4 % (0-10); NRBC Flagged by Analyzer 0 % (0-5); Neutrophil # 5.72 X10^3/uL (2.7-7.7); Neutrophil % 64.5 % (47-70); Platelet Count 258 K/mm3 (150-450); RBC Distribution Width CV 13.2 % (11.6-14.6); RBC Distribution Width SD 46.5 fl (35.1-43.9); Red Blood Count 4.25 M/mm3 (4.2-5.4); White Blood Count 8.9 K/mm3 (4.4-11.0)
[2023-08-21 08:57] LABS: Vitamin D,25 Hydroxy 28.7 ng/mL
[2023-08-21 09:04] LABS: ALB/GLOB Ratio 0.8 RATIO (0.9-2.4); AST(SGOT) 24 U/L (15-37); Alanine Aminotransfer ALT/SGPT 29 U/L (13-56); Albumin, Serum 3.3 g/dL (3.2-5.0); Alkaline Phosphatase 168 U/L (45-117); Anion Gap 6 (5-15); BUN 17 mg/dL (7-18); BUN/Creat Ratio 22.9 RATIO (10-20); Calcium,Total 8.9 mg/dL (8.5-10.1); Chloride 100 mmol/L (98-107); Creatinine, Serum 0.74 mg/dL (0.55-1.02); EST Glomerular Filtration Rate 79 mL/min (>60); Est Glom Filt Rate - Afr Amer 96 mL/min (>60); Glucose 107 mg/dL (74-106); Potassium 3.9 mmol/L (3.5-5.1); Protein, Total 7.3 g/dL (6.4-8.2); Sodium Level 139 mmol/L (136-145); Thyroid Stim Hormone (TSH) 5.51 uIU/mL (0.358-3.74)
== END | disposition home or self-care (01) ==
LOC: LAB 07:20
PROVIDERS: PCP Family Medicine; Referring Provider Family Medicine; Visit Provider Family Medicine
DX: R39.89 Other symptoms and signs involving the genitourinary system (principal); E55.9 Vitamin D deficiency, unspecified; I10 Essential (primary) hypertension; E03.9 Hypothyroidism, unspecified
CPT/HCPCS: 36415; 80053; 82306; 84443; 85025; 87086; 87088

== ENCOUNTER → 2024-01-13 | Outpatient (CLI) | payer MEDICARE, OTHER, SELFPAY | END | disposition home or self-care (01) | LOC: MTLAB 12:57 | PROVIDERS: PCP Family Medicine; Referring Provider Family Medicine; Visit Provider Family Medicine | DX: E03.9 Hypothyroidism, unspecified (principal) | CPT/HCPCS: 36415; 84443 ==

== ENCOUNTER → 2024-01-26 | Outpatient (CLI) | payer MEDICARE, OTHER, SELFPAY ==
--- NOTE | 2024-01-26 11:20 | RAD_ITS ---
STUDY: X-RAY - RIGHT SHOULDER REASON FOR EXAM: Female, 83 years old. Shoulder pain. TECHNIQUE: 4 views of the right shoulder. COMPARISON: None. FINDINGS: There is glenohumeral arthrosis with osteophyte formation along the inferomedial margin of the humeral head. There is mild acromioclavicular arthrosis. Normal acromion. Intact humeral head and visualized proximal humerus. The soft tissue structures are unremarkable. There is no demonstrated fracture. Normal visualized pulmonary apex. RAD/Shoulder min 2 Views IMPRESSION: Glenohumeral arthrosis. Mild acromioclavicular arthrosis. Electronically Signed: Roel Morris MD at 14:25 EDT ,
== END | disposition home or self-care (01) ==
PROVIDERS: PCP Family Medicine; Referring Provider Family Medicine; Visit Provider Family Medicine
DX: M25.519 Pain in unspecified shoulder (principal)
CPT/HCPCS: 73030

== ENCOUNTER → 2024-08-19 | Outpatient (CLI) | payer MEDICARE, OTHER, SELFPAY ==
[2024-08-19 16:01] LABS: Color, Urine Yellow (Yellow); Glucose, Dipstick Normal (Normal); Ketone-Dipstick Negative (Negative); Leukocyte Esterase-Dipstick 500 /ul (Negative); Nitrite-Dipstick Negative (Negative); Occult Blood-Urine 25 /ul (Negative); Protein-Dipstick 30 mg/dl (Negative); Specific Gravity, Urine 1.015 (1.002-1.030); Urine Bilirubin Dipstick Negative (Negative); Urine Clarity Cloudy (Clear); Urine Urobilinogen Normal (Normal)
== END | disposition home or self-care (01) ==
LOC: LABSPEC 13:48
PROVIDERS: PCP Family Medicine; Referring Provider Family Medicine; Visit Provider Family Medicine
DX: N39.0 Urinary tract infection, site not specified (principal)
CPT/HCPCS: 81002; 87086; 87088; 87186